=== PATIENT | female | born 1940 | race Hispanic/Latino ===

== ENCOUNTER 2018-01-02 23:30 | Emergency (ER) | payer MEDICARE, OTHER ==
--- NOTE | 2018-01-03 07:33 | CT ---
PRELIMINARY REPORT/[facility]/EMERGENCY AFTER HOURS PROCEDURE: EXAM: CT Head Without Intravenous Contrast CLINICAL HISTORY: 77 years old, female; Injury or trauma; Fall; Initial encounter; Blunt trauma (contusions or hematoma s); Patient HX: 77f presents via em[facility] for the evaluation of a fall from bed. Fall was witnessed by [facility] staff. Denies loc. C/O bump to the head. Patient HX of dementia and at baseline per [facility] and [facility]. TECHNIQUE: Axial computed tomography images of the head/brain without intravenous contrast. COMPARISON: No relevant prior studies available. FINDINGS: Brain: Mild volume loss No hemorrhage. Moderate white matter disease. No edema. Ventricles: Unremarkable. No ventriculomegaly. Bones/joints: Unremarkable. No acute fracture. Soft tissues: Mild right parietal scalp swelling Sinuses: Unremarkable as visualized. No acute sinusitis. Mastoid air cells: Unremarkable as visualized. No mastoid effusion. IMPRESSION: No intracranial hemorrhage.Please see discussion above. Thank you for allowing us to participate in the care of your patient. Dictated and Authenticated by: Mann Sanchez MD 01/03/2018 2:07 AM Central Time ([place] & [place]) FINAL REPORT HEAD CT WITHOUT CONTRAST: Date: 01/03/18 COMPARISON: 08/14/14. HISTORY: Fall, trauma. FINDINGS: I agree with the preliminary report given by Debi. The imaged paranasal sinuses and mastoid air cells are well aerated. No displaced calvarial fracture. There is atherosclerotic calcification of the cav ernous carotid arteries. There is a focal area of scalp swelling near the vertex posteriorly on the r ight. There is diffuse cerebral volume loss and periventricular/deep/subcortical white matter hypoden sity, evidence of small vessel disease. No intracranial hemorrhage, midline shift, or mass effect. IMPRESSION: Focal scalp swelling on the right near the vertex. No associated fracture or intracranial hemorrhage. POS: [facility]
--- NOTE | 2018-01-03 08:06 | CT ---
PRELIMINARY REPORT/[facility]/EMERGENCY AFTER HOURS PROCEDURE: EXAM: CT Cervical Spine Without Intravenous Contrast CLINICAL HISTORY: 77 years old, female; Injury or trauma; Fall; Initial encounter; Blunt trauma; Patient HX: 77f presen ts via ems for the evaluation of a fall from bed. Fall was witnessed by [facility] staff. Denies loc. C/O bum p to the head. Patient HX of dementia and at baseline per [facility] and [facility]. TECHNIQUE: Axial computed tomography images of the cervical spine without intravenous contrast. COMPARISON: No relevant prior studies available. FINDINGS: Vertebrae: Loss of vertebral body height, presumed degenerative. Minimal retrolisthesis of C5 on C6 No acute fracture. Discs/spinal canal/neural foramina: No acute findings. Central canal stenosis most pronounced at C4-C 5. Foraminal stenosis most pronounced at C5-C6 Soft tissues: Unremarkable. Lung apices: Mild groundglass opacity in the left upper lobe IMPRESSION: No definite acute cervical fracture Mild left upper lobe opacity which may represent pulmonary contusion Thank you for allowing us to participate in the care of your patient. Dictated and Authenticated by: Mann Sanchez MD 01/03/2018 2:07 AM Central Time ([place] & [place]) FINAL REPORT CERVICAL SPINE CT WITHOUT CONTRAST: Date: 01/03/18 COMPARISON: None. HISTORY: Dementia, fall, trauma. FINDINGS: I agree with the preliminary report given by Debi. Incompletely imaged, hazy, ground-glass/alveolar opacity noted in left lung apex, nonspecific. Athero sclerotic calcification of cavernous carotid arteries noted. C1 ring, occipital condyles, C1-2 articu lation, dens, craniocervical junction, and cervicothoracic junction are intact. There is prominent degenerative change at the atlantoaxial interspace. There is multilevel bilateral facet hypertrophy. There is disc bulge present at C4-5. There is mild retrolisthesis at C5-6 and mild anterolisthesis at C7-T1. No prevertebral soft tissue swelling, fracture, or evidence of dislocation. IMPRESSION: No acute cervical spine fracture noted. Additional findings as described above. POS: [facility]
== END 2018-01-03 03:03 ==
LOC: ERS 23:30
DX: S00.03XA Contusion of scalp, initial encounter (principal); E78.5 Hyperlipidemia, unspecified; I10 Essential (primary) hypertension; E11.39 Type 2 diabetes mellitus with other diabetic ophthalmic complication; H40.9 Unspecified glaucoma; E11.40 Type 2 diabetes mellitus with diabetic neuropathy, unspecified; G47.00 Insomnia, unspecified; G30.9 Alzheimer's disease, unspecified; F02.80 Dementia in other diseases classified elsewhere, unspecified severity, without behavioral disturbance, psychotic disturbance, mood disturbance, and anxiety; Z79.4 Long term (current) use of insulin; Z79.899 Other long term (current) drug therapy; W06.XXXA Fall from bed, initial encounter
CPT/HCPCS: 70450; 72125

== ENCOUNTER 2018-01-09 10:05 | Emergency (ER) | payer MEDICARE ==
--- NOTE | 2018-01-09 11:15 | CT ---
CT BRAIN WITHOUT CONTRAST: HISTORY: Fall. Injury. COMPARISON: CT brain from 01/03/2018. FINDINGS: No acute territorial infarct or hemorrhage. No midline shift or mass effect. Ventricular size and e xtraaxial CSF spaces are normal. Moderate atrophy. The paranasal sinuses and mastoids are clear. The calvarium is intact. Moderate microvascular ischemic changes. Moderate atrophy. IMPRESSION: No acute intracranial abnormality. POS: [facility]
== END 2018-01-09 12:45 | disposition home or self-care (01) ==
LOC: ERS 10:05
DX: S00.03XA Contusion of scalp, initial encounter (principal); E78.5 Hyperlipidemia, unspecified; I10 Essential (primary) hypertension; F41.9 Anxiety disorder, unspecified; E11.42 Type 2 diabetes mellitus with diabetic polyneuropathy; G47.00 Insomnia, unspecified; G30.9 Alzheimer's disease, unspecified; F02.80 Dementia in other diseases classified elsewhere, unspecified severity, without behavioral disturbance, psychotic disturbance, mood disturbance, and anxiety; Z79.4 Long term (current) use of insulin; Z79.899 Other long term (current) drug therapy; W05.0XXA Fall from non-moving wheelchair, initial encounter; Y92.129 Unspecified place in nursing home as the place of occurrence of the external cause
CPT/HCPCS: 70450

== ENCOUNTER 2018-06-19 19:33 | Inpatient (IN) | payer MEDICARE, OTHER, MEDICAID ==
[2018-06-19 20:18] LABS: #Eosinphils 0.3 thou/uL (0.0-0.7); #Lymphocytes 1.6 thou/uL (1.20-3.40); #Monocytes 0.3 thou/uL (0.11-0.59); #Neutrophils 3.5 thou/uL (1.40-6.50); %Basophils 0.5 % (0.0-1.0); %Eosinophils 4.9 % (0.0-10.0); %Lymphocytes 27.4 % (21.0-51.0); %Monocytes 5.2 % (0.0-10.0); %Neutrophils 62.1 % (42.0-75.0); Hemoglobin 11.1 g/dL (12.0-16.0); Mean Corpuscular HGB CONC 33.3 g/dL (32.0-36.0); Mean Corpuscular Volume 83.9 fL (78.0-98.0); Mean Platelet Volume 7.3 fL (7.4-10.4); Platelet Count 173 thou/uL (130-400); RBC Distribution Width 16.4 % (11.5-14.5); Red Blood Cell (RBC) Count 3.96 mill/uL (4.20-5.40); White Blood Cell (WBC) Count 5.7 thou/uL (4.8-10.8)
[2018-06-19 20:38] LABS: ALT (SGPT) 78 U/L (8-55); AST (SGOT) 58 U/L (5-34); Albumin 2.4 g/dL (3.4-4.8); Alkaline Phosphatase 226 U/L (40-150); Anion Gap 8 mmol/L (10-20); BUN (Urea Nitrogen) 58 mg/dL (9.8-20.1); Bilirubin, Total 0.2 mg/dL (0.2-1.2); Calc. Creatinine Clearance 0 mL/min (70-130); Calcium 8.3 mg/dL (7.8-10.44); Carbon Dioxide 27 mmol/L (23-31); Chloride 112 mmol/L (98-107); Estimated GFR-MDRD 17; Glucose 69 mg/dL (83-110); Potassium 4.2 mmol/L (3.5-5.1); Protein, Total 5.4 g/dL (6.0-8.3); Sodium 143 mmol/L (136-145)
--- NOTE | 2018-06-19 20:38 | RAD ---
RADIOGRAPH CHEST 1 VIEW: Date: 06/19/2018 Time: 8:22 p.m. HISTORY: A 77-year-old female with altered mental status and hypoglycemia. COMPARISON: None available. FINDINGS: A large defibrillation paddle overlies most of the right lung. There are bilateral pleural effusions , at least moderate sized, and possibly large. There is opacification of the bilateral lung bases, p artly due to the pleural effusions. There could be atelectasis or air space disease in the lower lob es. No cardiomegaly. No pneumothorax is identified. IMPRESSION: 1. Bilateral moderate to large pleural effusions. 2. Ongoing cardioversion. DIEGO [] POS: [facility]
[2018-06-19 20:42] LABS: CKMB 5.2 ng/mL (0-6.6); Troponin I 0.063 ng/mL (< 0.028)
[2018-06-19] MEDS ORDERED: Dextrose 50% Abboject 50 ML SYRINGE ONE (20:50)
[2018-06-19 21:37] LABS: Bilirubin Negative (Negative); Blood, Urine Negative (Negative); Clarity CLOUDY (Clear); Glucose, Urine (Dipstick) 100 mg/dL (Negative); Leukocyte Negative (Negative); Nitrite Negative (Negative); Protein, Urine (Dipstick) > or equal to 300 mg/dL (Neg-Trace); Specific Gravity, Urine 1.017 (1.002-1.036); Urobilinogen 0.2 mg/dL (0.2-1.0)
[2018-06-19 21:40] LABS: Bacteria/HPF 4+ HPF (None Seen); Hyaline Casts/LPF 0-3 HYALINE CAST LPF (0-3 Hyaline); RBC/HPF 0-3 HPF (0-3)
[2018-06-19 21:41] LABS: Yeast-AUWi Flag 27.9 (0-25.0)
[2018-06-19 21:51] LABS: Crystals/HPF 3+ AMORPH URATES HPF (Negative); Yeast-All Forms None Seen HPF (None Seen)
[2018-06-19] MEDS ORDERED: Aspirin 300 MG Suppository ONE (22:41)
[2018-06-19] MEDS ORDERED: cefTRIAXone\\ROCEPHIN 2 GM VIAL ONE (22:41)
[2018-06-20] MEDS ORDERED: Dextrose 50% Abboject 50 ML SYRINGE ONE (00:30)
[2018-06-20 00:32] LABS: Troponin I 0.079 ng/mL (< 0.028)
[2018-06-20] MEDS ORDERED: Acetaminophen 325 MG TAB PO PRN (01:18)
[2018-06-20] MEDS ORDERED: Ondansetron HCl/PF 4 MG/2 ML Vial IVP PRN (01:18)
[2018-06-20] MEDS ORDERED: Dextrose 5% in Water 1,000 ML IV PRN (02:42)
[2018-06-20 03:50] LABS: #Eosinphils 0.1 thou/uL (0.0-0.7); #Monocytes 0.4 thou/uL (0.11-0.59); %Basophils 0.2 % (0.0-1.0); %Eosinophils 2.6 % (0.0-10.0); %Lymphocytes 18.3 % (21.0-51.0); %Monocytes 6.7 % (0.0-10.0); %Neutrophils 72.2 % (42.0-75.0); Hemoglobin 10.4 g/dL (12.0-16.0); Mean Corpuscular HGB CONC 33.8 g/dL (32.0-36.0); Mean Corpuscular Hemoglobin 28.3 pg (27.0-31.0); Mean Corpuscular Volume 83.7 fL (78.0-98.0); Mean Platelet Volume 8.4 fL (7.4-10.4); Platelet Count 126 thou/uL (130-400); RBC Distribution Width 16.4 % (11.5-14.5); Red Blood Cell (RBC) Count 3.68 mill/uL (4.20-5.40); White Blood Cell (WBC) Count 5.6 thou/uL (4.8-10.8)
[2018-06-20 04:05] LABS: Anion Gap 12 mmol/L (10-20); BUN (Urea Nitrogen) 57 mg/dL (9.8-20.1); Calc. Creatinine Clearance 16 mL/min (70-130); Calcium 7.7 mg/dL (7.8-10.44); Carbon Dioxide 19 mmol/L (23-31); Chloride 117 mmol/L (98-107); Estimated GFR-MDRD 18; Glucose 92 mg/dL (83-110); Potassium 4.2 mmol/L (3.5-5.1); Sodium 144 mmol/L (136-145)
[2018-06-20] MEDS: Dextrose 50% Abboject 50 ML SYRINGE IVP PRN ×3 (05:00→11:56)
--- NOTE | 2018-06-20 06:26 | HP ---
PRIMARY CARE PHYSICIAN: A doctor at the skilled nursing. CODE STATUS: DNR/DNI as verified by power of deputy attorney general and this her daughter at bedside. TIME OF EVALUATION: 12:05 a.m. CHIEF COMPLAINT: Change in mental status. HISTORY OF PRESENT ILLNESS: This is a 77-year-old female patient with past medical history of Alzhei lachelle, diabetes, hypertension, depression, very poor mental baseline due to dementia. The patient is i n a skilled nursing, came to the hospital after having worsening of the mental status, she was found to be hypoglycemic, also hypothermic, she was found to have a positive urine, most likely the signs and symptoms are coming from sepsis. The patient has been started on antibiotics, has been placed in a w arm blanket. We will monitor her blood sugar with correction as needed. She has been started on bro ad spectrum antibiotics. We will follow cultures. REVIEW OF SYSTEMS: Unable to obtain. The patient is lethargic, only responsive to deep pain stimula tion. PAST MEDICAL HISTORY: As mentioned in the HPI. PAST SURGICAL HISTORY: Bunionectomy, tubal ligation, cataract extraction. PSYCHIATRIC HISTORY: No previous psych history. SOCIAL HISTORY: No alcohol, no drugs. No smoking history. FAMILY HISTORY: Reviewed and noncontributory for current presentation. ALLERGIES: No known drug allergies. MEDICATIONS: Hydrochlorothiazide, Lantus, Humalog, simvastatin, ____, enalapril, metoprolol, sertral ine. PHYSICAL EXAMINATION: VITAL SIGNS: At presentation, blood pressure 189/60, with a heart rate 42, respiratory rate was 14, oxygen in the range of 96. GENERAL APPEARANCE: The patient is lethargic, only arousable to deep stimulation. No acute distress . HEENT: Eyes, normal conjunctivae. Moist oral mucosa. Not icteric. NECK: No JVD. RESPIRATORY: Bilateral air entry. No rales, no wheezing. Symmetric expansion. CARDIOVASCULAR: Normal rate. Patient is bradycardic, regular rhythm. No murmurs, no gallop. Bilat eral edema. ABDOMEN: Soft, normal bowel sounds. MUSCULOSKELETAL: Baseline range of motion, unable to explore and with the patient's health. The pat ient is lethargic. SKIN: Warm and intact. No pallor, rashes or redness. The patient has a bedsore stage II in the sac ral area. Peripheral pulses are present. Capillary refill seems to be intact. NEUROLOGIC: The patient is lethargic, I am unable to fully explore. There was no evidence of any ne w weakness. Cranial nerves and sensory intact. PSYCHIATRIC: The patient is lethargic, unable to explore. Chest x-ray was reviewed. The patient has bilateral moderate to large pleural effusions. LABORATORY DATA: Labs were reviewed. The patient has white count 5.7, hemoglobin 11, MCV 83, platel et count 173. Sodium 143, potassium 4.2, chloride 112, carbon dioxide 27, anion gap 8. BUN 58 with creatinine 2.67. On previous admission the creatinine was 1.98, glucose initially was in the 50s, th en 74, has being above 100 after initial treatment. Lactic acid 1.3, AST 58, ALT 78, alkaline phosph atase 226. Troponin initial 0.063 and 0.079, BNP 370. Urine was done and was positive with white co unt 11-20. ASSESSMENT AND PLAN: The patient will be placed in the hospital for the following medical problems: 1. Acute encephalopathy, likely due to hypoglycemia, also due to underlying sepsis. We will treat t he underlying condition. Supportive care, aspiration precautions. 2. Hypoglycemia, could be related to patient getting medications and not eating appropriately; howev er, might be also secondary to underlying sepsis. 3. Sepsis. The patient presented with hypothermia, acute encephalopathy, acute kidney injury, posit lindsey UA. The patient has been started on antibiotics and will continue for now. Follow cultures and adjust symptoms. 4. Urinary tract infection, positive UA, treatment as above. 5. Bilateral pleural effusions, likely secondary to underlying congestive heart failure. We are galvan ited with fluid administration with sepsis, we will need to find the right ____ for fluids. 7. Acute on chronic kidney injury. The patient has an increase in creatinine from 1.8-2.6, patient has received some hydration initially, this might be also secondary to sepsis. The patient is on ant ibiotics, if not improving we might need to call Nephrology for assistance with this case. 8. Mildly positive troponin, initial was 0.063, and 0.079, elevation is mild, could be secondary to non-ST elevation myocardial infarction, could be secondary to sepsis, will trend, might need Cardiolo gy activity assistant with this case. 9. Elevated beta natriuretic peptide. The patient most likely has underlying congestive heart failu re, do echo in the morning. 10. Hypothermia, could be secondary to combination of sepsis plus hypoglycemia that might have been for a prolonged time, continue warm blankets. Treat underlying condition. TSH was normal. 11. Hyperlipidemia, reconcile home medications. Advance diet once the patient is able to eat.
[2018-06-20] MEDS ORDERED: Enoxaparin Sodium 30 MG/0.3 ML SYRINGE SC SCH (09:00)
--- NOTE | 2018-06-20 11:22 | PDOC.PULCN ---
<Shahana Olivares - Last Filed: 06/20/18 11:41> Pulmonology Consult: HPI - Date of Consult Date: 06/20/18 Time: 11:20 - Consult Details Reason for Consult: Admission in the IMCU Requesting Physician: Dr. Caballero - History of Present Illness HPI: VALERIE TOMLINSON is a 77 year-old F PMHx Advanced Alzheimers, DM, HTN, HLD, Depression who presented from [facility] where she resides due to altered mental status. She was found to be hypoglycemic by the [place]. Her daughter reports that she had not been eating as much Tuesday when she saw her. She was also found in the ED to be hypothermic with temps as low as 92. Her daughter reports that her baseline mental status is that she can sit in a wheelchair and move herself around with her feet, but she no longer walks. She can also feed herself. Unable to obtain history from the patient due to mental status changes and advanced dementia. Pulmonology Consult: ROS - Review of Systems ROS unobtainable: due to mental status Pulmonology Consult: H Source: family Past Medical History: PMHx: DM2, Alzheimer's Dementia, Glaucoma, HTN, HLD, Insomnia, Depression PSHx: Bilateral tubal ligation, bunionectomy, cataracts - Family History Family history: reviewed and not pertinent - Social History Smoking Status: Never smoker Alcohol Use: none Drug Use History: none Living Situation: longterm resident Pulmonology Consult: Meds - Medications MAR Reviewed: Yes Medications: Current Medications Acetaminophen (Tylenol) 650 mg PO Q4H PRN PRN Reason: Headache/Fever or Pain Dextrose/Water (Dextrose 50%) 25 gm IVP PRN PRN PRN Reason: HYPOGLYCEMIA PROTOCOL Last Admin: 06/20/18 08:05 Dose: 25 gm Enoxaparin Sodium (Lovenox) 30 mg SC 0900 SRINIVAS Last Admin: 06/20/18 08:38 Dose: 30 mg Glucagon (Glucagon) 1 mg IM PRN PRN PRN Reason: HYPOGLYCEMIA PROTOCOL Ceftriaxone Sodium 1 gm/ (Sodium Chloride) 100 mls @ 200 mls/hr IVPB 2300 SRINIVAS Dextrose/Water (D5w) 1,000 mls @ 0 mls/hr IV INF PRN PRN Reason: HYPOGLYCEMIA PROTOCOL Dextrose/Sodium Chloride (D5 1/2 Ns) 500 mls @ 40 mls/hr IV .[id number] SRINIVAS Ondansetron HCl (Zofran) 4 mg IVP Q6H PRN PRN Reason: Nausea/Vomiting - Allergies Allergies/Adverse Reactions: Allergies Allergy/AdvReac Type Severity Reaction Status Date / Time No Known Allergies Allergy Verified 06/20/18 00:01 Pulmonology Consult: PE - Physical Exam Constitutional: NAD HEENT: oral pharynx no lesions Deviation from normal: dry mucous membranes Neck: no nodes, supple Cardiovascular: RRR, no significant murmur Respiratory: clear to auscultation bilaterally. negative: accessory muscle use , rales, respiratory distress, rhonchi, wheezes Gastrointestinal: soft, non-tender, no distention, positive bowel sounds Musculoskeletal: edema present (1+ pedal edema bilaterally and dependent hip edema) Neurological: non-focal, moves all 4 limbs Deviation from normal: A&Ox0 Skin: cap refill <2 seconds Deviation from normal: reported stage 2 sacral decubitus ulcer Pulmonology Consult: Results - Labs Result Diagrams: 06/20/18 03:16 06/20/18 03:16 - Radiology Interpretation Chest x-ray Status: image reviewed by me, report reviewed by me Additional comments: bilateral pleural effusions Pulmonology Consult: A/P - Problem (1) Sepsis Current Visit: Yes Code(s): A41.9 - SEPSIS, UNSPECIFIED ORGANISM Status: Acute Qualifiers: Sepsis type: sepsis due to unspecified organism Qualified Code(s): A41.9 - Sepsis, unspecified organism (2) UTI (urinary tract infection) Current Visit: Yes Status: Acute Qualifiers: Urinary tract infection type: acute cystitis Hematuria presence: without hematuria Qualified Code(s): N30.00 - Acute cystitis without hematuria (3) Hypoglycemia Current Visit: Yes Code(s): E16.2 - HYPOGLYCEMIA, UNSPECIFIED Status: Acute (4) Hypothermia Current Visit: Yes Code(s): T68.XXXA - HYPOTHERMIA, INITIAL ENCOUNTER Status : Acute Qualifiers: Encounter type: initial encounter Qualified Code(s): T68.XXXA - Hypothermia , initial encounter (5) MALISSA (acute kidney injury) Current Visit: Yes Code(s): N17.9 - ACUTE KIDNEY FAILURE, UNSPECIFIED Status : Acute (6) Elevated brain natriuretic peptide (BNP) level Current Visit: Yes Code(s): R79.89 - OTHER SPECIFIED ABNORMAL FINDINGS OF BLOOD CHEMISTRY Status: Acute (7) Elevated troponin Current Visit: Yes Code(s): R74.8 - ABNORMAL LEVELS OF OTHER SERUM ENZYMES Status: Acute - Time Time: 50% of the time was spent in coordination of care (as documented) at patient's floor/unit and/or counseling patient. Time with Patient: greater than 50 minutes - Plan Plan: -Continue Rocephin for abx coverage for UTI until urine culture sensitivities result. -D5 1/2NS @ 40 mL/hr to help pt maintain glucose until sugars improve, can move out of the IMCU once no longer requiring q2h accuchecks -Repeat troponin as they have been slowly uptrending -Echo -Bear hugger to maintain temperature -Renally dose medications Code status: DNR per daughter <Ramiro Cardona - Last Filed: 06/26/18 08:33> Pulmonology Consult: HPI - History of Present Illness HPI: TOMLINSON,MARY L is a 77 year-old F Pulmonology Consult: Meds - Medications Medications: Current Medications Acetaminophen (Tylenol) 650 mg PO Q4H PRN PRN Reason: Headache/Fever or Pain Atorvastatin Calcium (Lipitor) 20 mg PO HS [facility] Last Admin: 06/25/18 20:34 Dose: 20 mg Dextrose/Water (Dextrose 50%) 25 gm SLOW IVP PRN PRN PRN Reason: Hypoglycemia Donepezil HCl (Aricept) 10 mg PO HS [facility] Last Admin: 06/25/18 20:34 Dose: 10 mg Glucagon (Glucagon) 1 mg IM PRN PRN PRN Reason: Hypoglycemia Heparin Sodium (Porcine) (Heparin) 5,000 units SC TID [facility] Last Admin: 06/25/18 20:35 Dose: Not Given Hydralazine HCl (Apresoline) 25 mg PO TID [facility] Last Admin: 06/25/18 20:35 Dose: 25 mg Ceftriaxone Sodium 1 gm/ (Sodium Chloride) 100 mls @ 200 mls/hr IVPB 2300 [facility] Last Admin: 06/25/18 22:18 Dose: 100 mls Dextrose/Water (D5w) 1,000 mls @ 0 mls/hr IV .Q0M PRN PRN Reason: Hypoglycemia Sodium Bicarbonate 75 meq/ (Dextrose/Water) 1,075 mls @ 75 mls/hr IV .[id number] [facility] Last Admin: 06/26/18 05:18 Dose: 1,075 mls Insulin Human Lispro (Humalog) 0 units SC .MILD SLIDING SCALE PRN PRN Reason: Mild Correctional Scale Last Admin: 06/25/18 18:06 Dose: 6 unit Insulin Human Lispro (Humalog) 0 units SC .BEDTIME SLIDING SC PRN PRN Reason: Bedtime Correctional Scale Last Admin: 06/25/18 22:18 Dose: 4 unit Multivitamins (Theragran) 1 tab PO DAILY [facility] Last Admin: 06/25/18 08:45 Dose: 1 tab Ondansetron HCl (Zofran) 4 mg IVP Q6H PRN PRN Reason: Nausea/Vomiting Sertraline HCl (Zoloft) 25 mg PO DAILY [facility] Last Admin: 06/25/18 08:46 Dose: 25 mg Sodium Chloride (Flush - Normal Saline) 10 ml IVF Q12HR [facility] Last Admin: 06/25/18 20:36 Dose: 10 ml Sodium Chloride (Flush - Normal Saline) 10 ml IVF PRN PRN PRN Reason: Saline Flush Pulmonology Consult: Results - Labs Result Diagrams: 06/25/18 04:26 06/25/18 04:26 Pulmonology Consult: A/P - Time Time: 50% of the time was spent in coordination of care (as documented) at patient's floor/unit and/or counseling patient. Attending Addendum - Attending Addendum Date/Time: I personally evaluated the patient and discussed the management with the resident. I agree with the History, Examination, Assessment and Plan documented above with any addition or exceptions noted below. 70 minutes have been devoted to this patient in various activities. I personally reviewed all imaging studies and laboratory data noted within this document. For fifty percent of this time, I was interacting with the patient at the bedside or coordinating care with the care team. For the remainder of the time I was immediately available to the patient in the hospital unit.
[2018-06-20] MEDS ORDERED: D5 1/2 NS 500 ML IV SCH (11:30)
[2018-06-20] MEDS: Dextrose 5 %-0.45 % NaCl 1,000 ML IV SCH (11:45)
[2018-06-20 13:12] LABS: CKMB 4.2 ng/mL (0-6.6); Troponin I 0.126 ng/mL (< 0.028)
[2018-06-20] MEDS ORDERED: Metoprolol Tartrate 50 MG TAB PO SCH (14:45)
[2018-06-20] MEDS ORDERED: Hydrochlorothiazide 25 MG TAB PO SCH (14:45)
[2018-06-20 14:51] LABS: Hemoglobin A1c 6.3 % (4.0-6.0)
[2018-06-20 18:35] LABS: CKMB 4.6 ng/mL (0-6.6); Troponin I 0.133 ng/mL (< 0.028)
[2018-06-20] MEDS: Atorvastatin Calcium 20 MG TAB PO SCH (19:50)
[2018-06-20] MEDS: Donepezil HCl 10 MG TAB PO SCH (19:50)
[2018-06-20] MEDS: Metoprolol Tartrate 50 MG TAB PO SCH (19:51)
[2018-06-20] MEDS: cefTRIAXone\\ROCEPHIN 1 GM in Sodium Chloride 0.9% 100 ML IVPB SCH (23:18)
[2018-06-21] MEDS: Dextrose 50% Abboject 50 ML SYRINGE IVP PRN (01:48)
[2018-06-21] MEDS ORDERED: hydrALAZINE 10 MG TAB PO SCH ×2 (09:00→17:30)
[2018-06-21] MEDS: Metoprolol Tartrate 50 MG TAB PO SCH (09:10)
[2018-06-21] MEDS: Hydrochlorothiazide 25 MG TAB PO SCH (09:10)
[2018-06-21] MEDS: Heparin 5,000 UNITS/ML VIAL SC SCH ×3 (09:10→21:25)
[2018-06-21] MEDS: Multivit, Therapeutic 1 TAB PO SCH (09:11)
[2018-06-21 09:43] LABS: Anion Gap 10 mmol/L (10-20); BUN (Urea Nitrogen) 46 mg/dL (9.8-20.1); Calc. Creatinine Clearance 14 mL/min (70-130); Calcium 7.9 mg/dL (7.8-10.44); Carbon Dioxide 20 mmol/L (23-31); Chloride 116 mmol/L (98-107); Estimated GFR-MDRD 17; Glucose 81 mg/dL (83-110); Potassium 3.8 mmol/L (3.5-5.1); Sodium 142 mmol/L (136-145)
--- NOTE | 2018-06-21 09:47 | CON ---
DATE OF CONSULTATION: 06/19/2018 REASON FOR CONSULTATION: Elevated creatinine. HISTORY OF PRESENT ILLNESS: This is a very pleasant 77-year-old female, who is pretty much nonverbal and was admitted to the ICU for change in altered mental status. The patient's creatinine was 2.6 o n admission and has decreased to 2.5. Her last creatinine in 2013 was 1.9. The patient denies heada guerita, numbness, tingling or weakness. PAST MEDICAL HISTORY: Significant for Alzheimer's, hypertension, diabetes mellitus, CKD stage 4, ane alexis, bunionectomy, and tubal ligation. SOCIAL AND ECONOMIC HISTORY: No alcohol or drug use. FAMILY HISTORY: Negative for ESRD. ALLERGIES: Reviewed. HOME MEDICATIONS: List reviewed. REVIEW OF SYSTEMS: Unobtainable. PHYSICAL EXAMINATION: GENERAL: Patient is resting. VITAL SIGNS: Afebrile, pulse 75, breathing 16, blood pressure was 156/45. GENERAL: Weakness- HEAD: Headache- NECK: No swelling or lumps. NOSE: No epistaxis or discharge. EYES: No diplopia or pain. RESPIRATORY: Dyspnea- CARDIOVASCULAR: Chest pain- GASTROINTESTINAL: Nausea- /OCCUPATIONAL SAFETY AND HEALTH MANAGER: Hematuria- MUSCULOSKELETAL: No joint pain. NEUROPSYCHIATIC SYSTEMS: No suicidal ideation. No ideation. SKIN: Denies any rash or ulcer. CONSTITUTIONAL: No fever or chills. LABORATORY DATA: Potassium 9.3. ASSESSMENT AND RECOMMENDATIONS: 1. Acute kidney injury, chronic kidney disease, most likely decreased effective arterial blood volum e. Continue hydration. 2. Hypertension, stable. 3. Anemia, stable. We will order . No indication for dialysis at this time.
--- NOTE | 2018-06-21 13:03 | PRG ---
DATE OF SERVICE: 06/21/2018 SERVICE: Pulmonary Medicine. INTERVAL HISTORY: The patient is doing fine from a respiratory standpoint. Blood pressure is a rm le elevated. She is breathing comfortably. There are no significant overnight events. Otherwise, t here has been no interval change to her condition. She cannot provide any additional elements of the history. She follows some simple commands and can answer in 1- or 2-word sentences. Outside of [facility], she is poorly interactive. PHYSICAL EXAMINATION: VITAL SIGNS: Afebrile. Pulse 45, blood pressure 149/57, respirations 16, saturation 99% on room air . GENERAL: The patient is awake and alert, in no apparent distress. LUNGS: Decent air entry. There is no prolonged expiratory phase or wheezing present. HEART: Bradycardic. Regular. ABDOMEN: Soft, nontender, nondistended. Bowel sounds are positive. MUSCULOSKELETAL: No cyanosis or clubbing. There is no pitting in the bilateral lower extremities. NEUROLOGIC: Grossly nonfocal. LABORATORY DATA: WBC 5.6, hemoglobin 10.4. Creatinine 2.77, BUN 46, bicarbonate 20, chloride 116 an d slowly down trending. Blood cultures x2 and urine culture unremarkable. IMAGING: Echocardiogram demonstrates an ejection fraction that is normal. There is diastolic dysfun ction. Moderate mitral regurgitation is also present. ASSESSMENT: 1. Metabolic encephalopathy. 2. Severe sepsis. 3. Urinary tract infection. 4. Dementia, advanced. PLAN: The patient is stable for transition out of the IMCU to the telemetry unit. Cardiology consul tation will be placed for the bradyarrhythmia, which is persisting despite fixing some of the electro lyte abnormalities.
[2018-06-21] MEDS: Dextrose 5 %-0.45 % NaCl 1,000 ML IV SCH (16:37)
--- NOTE | 2018-06-21 16:54 | PDOC.PN ---
- Subjective Encounter Start Date: 06/21/18 Encounter Start Time: 16:45 Subjective: f/u for metabolic encephalopathy and suspected UTI and hypoglycemia. -: Glucose trending up as well BP. Remains lethargic but with advanced -: dementia. - Objective Resuscitation Status: Resuscitation Status DNR:Do Not Resuscitate MAR Reviewed: Yes Vital Signs & Weight: Vital Signs (12 hours) Temp Pulse Resp BP Pulse Ox 06/21/18 16:00 96.7 F L 43 L 18 187/62 H 98 06/21/18 11:00 96.6 F L 45 L 16 149/57 H 99 06/21/18 09:10 40 L 06/21/18 07:52 96.5 F L 40 L 16 06/21/18 07:43 96.5 F L 40 L 16 182/59 H 97 Weight Admit Weight 123 lb 7.342 oz Weight 121 lb 5 oz Most Recent Monitor Data Heart Rate from ECG 63 NIBP 156/45 NIBP BP-Mean 70 Respiration from ECG 26 SpO2 96 I&O: 06/20/18 06/21/18 06/22/18 06:59 06:59 06:59 Intake Total 960 Output Total 380 860 Balance -380 100 Result Diagrams: 06/20/18 03:16 06/21/18 09:15 Additional Labs: Accuchecks 06/21/18 06/21/18 06/21/18 16:22 11:59 10:16 POC Glucose 323 H 152 H 101 06/21/18 06/21/18 06/21/18 08:13 05:54 02:33 POC Glucose 264 H 105 182 H 06/21/18 06/20/18 06/20/18 01:45 22:01 19:59 POC Glucose 58 L* 85 106 06/20/18 18:31 POC Glucose 117 H Microbiology 06/19/18 21:20 Urine Straight Catheter Urine Culture - Preliminary 06/19/18 20:17 Venous blood - Left Hand Blood Culture - Preliminary NO GROWTH AT 48 HOURS 06/19/18 20:10 Venous blood - Left Arm Blood Culture - Preliminary NO GROWTH AT 48 HOURS Laboratory Tests 06/19/18 06/19/18 06/20/18 20:10 20:10 03:16 Creatinine 2.67 H 2.51 H Hemoglobin A1c Lactic Acid 1.3 06/20/18 06/21/18 03:16 09:15 Creatinine 2.77 H Hemoglobin A1c 6.3 H Lactic Acid Radiology Reviewed by me: Yes (2D echo - EF 55%, diast dysfxn, mod MR) EKG Reviewed by me: Yes (Tele - Sinus bradycardia) Phys Exam - Physical Examination lethargic, opens eyes briefly to name HEENT: PERRLA, sclera anicteric, oral pharynx no lesions Neck: no nodes, no JVD, supple, full ROM Respiratory: no wheezing, no rales, no rhonchi, clear to auscultation bilateral S1, S2 Cardiovascular: RRR, no significant murmur, no rub, gallop Gastrointestinal: soft, non-tender, no distention, positive bowel sounds Musculoskeletal: no edema, pulses present opens eyes to name, states one word Skin: no rash, normal turgor, cap refill <2 seconds Deviation from normal: Banegas with clear urine Dx/Plan (1) Metabolic encephalopathy Code(s): G93.41 - METABOLIC ENCEPHALOPATHY Status: Acute Comment: Suspected with multifactorial process including UTI, continue supportive mgmt, component of underlying dementia (2) MALISSA (acute kidney injury) Code(s): N17.9 - ACUTE KIDNEY FAILURE, UNSPECIFIED Status: Acute Comment: No improvement, ? new baseline, avoid nephrotoxic meds and limit contrast exposure (3) Hypoglycemia Code(s): E16.2 - HYPOGLYCEMIA, UNSPECIFIED Status: Acute Comment: Resolving , resume low-dose Lantus and monitor trend (4) UTI (urinary tract infection) Status: Acute Qualifiers: Urinary tract infection type: acute cystitis Hematuria presence: without hematuria Qualified Code(s): N30.00 - Acute cystitis without hematuria Comment: Continue Rocephin pending final Ucx results (5) Advanced dementia Code(s): F03.90 - UNSPECIFIED DEMENTIA WITHOUT BEHAVIORAL DISTURBANCE Status: Chronic Comment: Consider Palliative care option, continue Aricept 10mg HS - Plan continue antibiotics, PT/OT, social insurance adviser, DVT proph w/SCDs Continue supportive mgmt -: Palliative care options -: Continue Rocephin 1gm IV daily -: Start Lantus 3u sc daily -: Increase Hydralazine 10mg TID * AM lab: BMP
--- NOTE | 2018-06-21 18:38 | PRG ---
DATE OF SERVICE: 06/21/2018 SUBJECTIVE: A 77-year-old female being seen for acute kidney injury. The patient remains nonverbal. PHYSICAL EXAMINATION: GENERAL: Patient is awake. VITAL SIGNS: Afebrile, pulse 45, breathing at 16, blood pressure 149/57. HEAD/NECK: Normocephalic. Atraumatic. EYES: EOMI. No deformity. EARS: Clear. No ulcers. NOSE: Intact. No lesions. MOUTH: Clear. No discharge. THROAT: Clear. No exudate. LUNGS: Clear. No crackles. CARDIAC: S1, S2. No rub. ABDOMEN: Benign. BS+. GENITALIA/RECTUM: Banegas absent. BACK/EXTREMITIES: Edema 0+ Ulcer- NEUROLOGICAL: The patient is responsive. SKIN: Rash- Bruise- LYMPHATICS: Edema- Ulcer- LABORATORY DATA: Show creatinine 2.7, potassium 3.8, bicarbonate 38. ASSESSMENT AND PLAN: 1. Acute kidney injury with chronic kidney disease due to probable UTI and chronic ischemic nephropa thy. I will order renal imaging. 2. Hypertension, stable. 3. Anemia, stable. 4. Medications based on GFR are appropriate. No urgent indication for dialysis.
--- NOTE | 2018-06-21 19:54 | ULT ---
RENAL ULTRASOUND 06/21/18 COMPARISON: None. HISTORY: Acute kidney injury. TECHNIQUE: Multiplanar huber scale and color doppler images were obtained in a renal ultrasound. FINDINGS: The kidneys are normal in echogenicity without hydronephrosis or calculi and measure 7.2 and 8.9 cm i n length on the right and left, respectively. The urinary bladder is decompressed by Banegas catheter. IMPRESSION: Unremarkable renal ultrasound. POS: C
[2018-06-21] MEDS: Donepezil HCl 10 MG TAB PO SCH (21:23)
[2018-06-21] MEDS: hydrALAZINE 10 MG TAB PO SCH (21:24)
[2018-06-21] MEDS: Atorvastatin Calcium 20 MG TAB PO SCH (21:24)
[2018-06-22 03:35] LABS: #Eosinphils 0.3 thou/uL (0.0-0.7); #Lymphocytes 1.3 thou/uL (1.20-3.40); #Monocytes 0.4 thou/uL (0.11-0.59); %Basophils 0.4 % (0.0-1.0); %Eosinophils 4.6 % (0.0-10.0); %Lymphocytes 18.8 % (21.0-51.0); %Monocytes 5.6 % (0.0-10.0); %Neutrophils 70.6 % (42.0-75.0); Hemoglobin 10.2 g/dL (12.0-16.0); Mean Corpuscular Hemoglobin 28.1 pg (27.0-31.0); Mean Corpuscular Volume 85.3 fL (78.0-98.0); Mean Platelet Volume 9.1 fL (7.4-10.4); Platelet Count 162 thou/uL (130-400); RBC Distribution Width 16.7 % (11.5-14.5); Red Blood Cell (RBC) Count 3.64 mill/uL (4.20-5.40); White Blood Cell (WBC) Count 7.1 thou/uL (4.8-10.8)
[2018-06-22 03:41] LABS: Anion Gap 11 mmol/L (10-20); BUN (Urea Nitrogen) 52 mg/dL (9.8-20.1); Calc. Creatinine Clearance 14 mL/min (70-130); Calcium 8.2 mg/dL (7.8-10.44); Carbon Dioxide 18 mmol/L (23-31); Chloride 117 mmol/L (98-107); Estimated GFR-MDRD 16; Glucose 189 mg/dL (83-110); Potassium 4.1 mmol/L (3.5-5.1); Sodium 142 mmol/L (136-145)
--- NOTE | 2018-06-22 08:11 | PDOC.PN ---
- Subjective Encounter Start Date: 06/22/18 Encounter Start Time: 08:00 Subjective: f/u for hypoglycemia and now hypothermia overnight. Pt transferred to -: tele with low temp and placed on daina hugger. Temp stabilized and daughter -: notes pt the most alert and interactive since admit. - Objective Resuscitation Status: Resuscitation Status DNR:Do Not Resuscitate MAR Reviewed: Yes Vital Signs & Weight: Vital Signs (12 hours) Temp Pulse Resp BP BP Pulse Ox 06/22/18 01:31 92.0 F L 06/22/18 00:58 94.4 F L 46 L 16 153/54 H 99 06/21/18 21:24 44 L 191/70 H 06/21/18 21:08 45 L 16 191/70 H 99 Weight Admit Weight 123 lb 7.342 oz Weight 121 lb 5 oz Most Recent Monitor Data Heart Rate from ECG 63 NIBP 156/45 NIBP BP-Mean 70 Respiration from ECG 26 SpO2 96 I&O: 06/21/18 06/22/18 06/23/18 06:59 06:59 06:59 Intake Total 960 1150 Output Total 860 350 Balance 100 800 Result Diagrams: 06/22/18 03:03 06/22/18 03:03 Additional Labs: Accuchecks 06/22/18 06/22/18 06/21/18 04:00 00:39 21:05 POC Glucose 168 H 199 H 317 H 06/21/18 06/21/18 06/21/18 16:22 11:59 10:16 POC Glucose 323 H 152 H 101 06/21/18 08:13 POC Glucose 264 H Microbiology 06/19/18 21:20 Urine Straight Catheter Urine Culture - Preliminary 06/19/18 20:17 Venous blood - Left Hand Blood Culture - Preliminary NO GROWTH AT 48 HOURS 06/19/18 20:10 Venous blood - Left Arm Blood Culture - Preliminary NO GROWTH AT 48 HOURS Laboratory Tests 06/19/18 06/19/18 06/20/18 20:10 20:10 03:16 Creatinine 2.67 H 2.51 H Hemoglobin A1c Lactic Acid 1.3 06/20/18 06/21/18 03:16 09:15 Creatinine 2.77 H Hemoglobin A1c 6.3 H Lactic Acid EKG Reviewed by me: Yes (Tele - Sinus bradycardia 40-50's) Phys Exam - Physical Examination Constitutional: NAD alert, responds in 1-2 words HEENT: PERRLA, sclera anicteric, oral pharynx no lesions Neck: no nodes, no JVD, supple, full ROM diminished in bases bilat Respiratory: no wheezing, no rales, no rhonchi bradycardic S1, S2 Cardiovascular: RRR, no rub, gallop Gastrointestinal: soft, non-tender, no distention, positive bowel sounds Musculoskeletal: no edema, pulses present Neurological: normal sensation, moves all 4 limbs A x O x 1 Skin: normal turgor, cap refill <2 seconds Deviation from normal: Banegas with sediment in catheter Dx/Plan (1) Metabolic encephalopathy Code(s): G93.41 - METABOLIC ENCEPHALOPATHY Status: Acute Comment: Suspected with multifactorial process including UTI, continue supportive mgmt, component of underlying dementia, improved per family report (2) MALISSA (acute kidney injury) Code(s): N17.9 - ACUTE KIDNEY FAILURE, UNSPECIFIED Status: Acute Comment: No improvement, ? new baseline, avoid nephrotoxic meds and limit contrast exposure (3) Hypoglycemia Code(s): E16.2 - HYPOGLYCEMIA, UNSPECIFIED Status: Acute Comment: Resolving , resume low-dose Lantus and monitor trend (4) UTI (urinary tract infection) Status: Acute Qualifiers: Urinary tract infection type: acute cystitis Hematuria presence: without hematuria Qualified Code(s): N30.00 - Acute cystitis without hematuria Comment: Continue Rocephin pending final Ucx results (5) Advanced dementia Code(s): F03.90 - UNSPECIFIED DEMENTIA WITHOUT BEHAVIORAL DISTURBANCE Status: Chronic Comment: Consider Palliative care option, continue Aricept 10mg HS (6) Hypothermia Code(s): T68.XXXA - HYPOTHERMIA, INITIAL ENCOUNTER Status: Acute Qualifiers: Encounter type: initial encounter Qualified Code(s): T68.XXXA - Hypothermia , initial encounter Comment: Improved with Daina hugger, no current sign of new infectious process, repeat blood cx, continue Rocephin for suspected UTI - Plan plan discussed w/ family, continue antibiotics, PT/OT, manager social responsibility, speech therapy, DVT proph w/SCDs Continue supportive mgmt -: Hold all AV naun blocking agents and B-blockers -: Speech evaluation for dysphagia screening -: Continue Rocephin -: AM lab: BMP, CBC * Code Status: DNR
[2018-06-22] MEDS ORDERED: Dextrose 50% Abboject 50 ML SYRINGE SLOW IVP PRN (08:18)
[2018-06-22] MEDS ORDERED: Dextrose 5% in Water 1,000 ML IV PRN (08:18)
[2018-06-22] MEDS: Heparin 5,000 UNITS/ML VIAL SC SCH ×3 (10:00→21:00)
[2018-06-22] MEDS: Multivit, Therapeutic 1 TAB PO SCH (10:00)
[2018-06-22] MEDS: Hydrochlorothiazide 25 MG TAB PO SCH (10:00)
[2018-06-22] MEDS: hydrALAZINE 10 MG TAB PO SCH ×3 (10:00→21:00)
[2018-06-22] MEDS: Sodium Bicarbonate 75 MEQ in Dextrose 5% in Water 1,000 ML IV SCH ×2 (10:20→22:27)
--- NOTE | 2018-06-22 10:35 | PRG ---
DATE OF SERVICE: 06/22/2018 SUBJECTIVE: This 77-year-old female being seen for acute kidney injury. The patient does not verbal ize any complaints. PHYSICAL EXAMINATION: GENERAL: Patient is resting. VITAL SIGNS: Temperature 98.2, pulse 46, breathing 16, blood pressure 153/54. HEAD/NECK: Normocephalic. Atraumatic. EYES: EOMI. No deformity. EARS: Clear. No ulcers. NOSE: Intact. No lesions. MOUTH: Clear. No discharge. THROAT: Clear. No exudate. LUNGS: Clear. No crackles. CARDIAC: S1, S2. No rub. ABDOMEN: Benign. BS+. GENITALIA/RECTUM: Banegas absent. BACK/EXTREMITIES: Edema 0+ Ulcer- NEUROLOGICAL: Alert and motor intact. SKIN: Rash- Bruise- LYMPHATICS: Edema- Ulcer- LABORATORY DATA: Show hemoglobin 10.2, creatinine 2.9. ASSESSMENT AND RECOMMENDATIONS: 1. Acute kidney injury most likely because of acute tubular necrosis, multifactorial. No indication for dialysis. 2. Metabolic acidosis. 3. Hypertension, stable. 4. Hyperglycemia. No urgent indication for dialysis. Overall, prognosis remains extremely poor.
--- NOTE | 2018-06-22 11:17 | CON ---
DATE OF CONSULTATION: 06/22/2018 REASON FOR CONSULTATION: Sinus bradycardia in the setting of hypothermia and sepsis. HISTORY OF PRESENT ILLNESS: Ms. Long is a 77-year-old woman. The patient was brought to the [facility] on 06/20/2018. At that time, she was brought from the residential. She has a history of Alzh eimer's, diabetes, hypertension, depression. She was also on metoprolol in the residential. The alexandra estrada is unable to give any history. The patient was given antibiotics, given a warming blanket and the bradycardia has resolved. PAST HISTORY: As mentioned above in the history of present illness. MEDICATIONS: Hydrochlorothiazide, insulin, enalapril, metoprolol. SURGICAL HISTORY: History of tubal ligation and cataract extraction. PHYSICAL EXAMINATION: GENERAL: This is an elderly woman. She is confused and disoriented. She is no longer bradycardic. VITAL SIGNS: Her blood pressure most recently recorded 153/54, pulse earlier was 46, but now it is i n the 70s, it is sinus. Her temperature was down to 92 degrees, but the nurse tells me now it is wit hin normal limits, has not yet been recorded in the computer. HEENT: Eyes; sclerae nonicteric. Mouth mucous membranes moist. NECK: Supple, no lymphadenopathy. LUNGS: Clear, no wheezing, rales or rhonchi. CARDIAC: Normal S1, normal S2, no murmur, rub or gallop. ABDOMEN: Soft, nontender, no hepatosplenomegaly. EXTREMITIES: Warm and dry. NECK: The patient as mentioned is confused and disoriented. PERTINENT LABORATORY AND X-RAY FINDINGS: Hemoglobin is 10.2. BNP is 370. Creatinine is 2.91. Tiana mated GFR is 14, potassium is 4.1. EKG did show sinus bradycardia, now sinus rhythm. ASSESSMENT: 1. Sinus bradycardia related to beta blockers and hypothermia, resolved. 2. Probably diastolic heart failure with a BNP of 370, although some of the increased BNP is probabl y related to renal failure. 3. Stage 4 renal failure. 4. Ejection fraction is 50-55%, normal left ventricular function. PLAN: 1. She has been taken off beta blockers. 2. Sepsis and hypothermia have been treated. We will sign off. Please call if needed.
[2018-06-22] MEDS: Atorvastatin Calcium 20 MG TAB PO SCH (21:00)
[2018-06-22] MEDS: Donepezil HCl 10 MG TAB PO SCH (21:02)
[2018-06-22] MEDS: cefTRIAXone\\ROCEPHIN 1 GM in Sodium Chloride 0.9% 100 ML IVPB SCH ×2 (22:25)
[2018-06-23 05:13] LABS: Anion Gap 11 mmol/L (10-20); BUN (Urea Nitrogen) 46 mg/dL (9.8-20.1); Calc. Creatinine Clearance 12 mL/min (70-130); Calcium 7.7 mg/dL (7.8-10.44); Carbon Dioxide 21 mmol/L (23-31); Chloride 111 mmol/L (98-107); Estimated GFR-MDRD 14; Glucose 173 mg/dL (83-110); Potassium 3.5 mmol/L (3.5-5.1); Sodium 139 mmol/L (136-145)
[2018-06-23 05:14] LABS: Eosinophils 1 % (0-10); Hemoglobin 9.1 g/dL (12.0-16.0); Hypochromia SLIGHT = 6-15 cells (100X) (0-5/hpf); Lymphocytes 26 % (21-51); MDiff Complete? YES; Mean Corpuscular HGB CONC 33.6 g/dL (32.0-36.0); Mean Corpuscular Hemoglobin 28.4 pg (27.0-31.0); Mean Corpuscular Volume 84.5 fL (78.0-98.0); Mean Platelet Volume 10.2 fL (7.4-10.4); Monocytes 3 % (0-10); Neutrophil 70 % (42-75); PLT Morphology Comment Appears Decreased; Platelet Count 104 thou/uL (130-400); RBC Distribution Width 16.7 % (11.5-14.5); White Blood Cell (WBC) Count 6.6 thou/uL (4.8-10.8)
--- NOTE | 2018-06-23 09:04 | PRG ---
DATE OF SERVICE: 06/23/2018 SUBJECTIVE: This is a 77-year-old female being seen for acute kidney injury, progressive rise in creatinine. The patient is nonverbal. PHYSICAL EXAMINATION: GENERAL: On examination the patient is resting. VITAL SIGNS: Afebrile, pulse 70, breathing 16, blood pressure 176/74. OBJECTIVE: See above. Awake, alert, in no acute distress. GENERAL APPEARANCE AND MENTAL STATUS: Fair. HEAD/NECK: Normocephalic. Atraumatic. EYES: EOMI. No deformity. EARS: Clear. No ulcers. NOSE: Intact. No lesions. MOUTH: Clear. No discharge. THROAT: Clear. No exudate. LUNGS: Clear. No crackles. CARDIAC: S1, S2. No rub. ABDOMEN: Benign. BS+. GENITALIA/RECTUM: Banegas absent. BACK/EXTREMITIES: Edema 0+ Ulcer- NEUROLOGICAL: The patient is not responding to questioning. SKIN: Rash- Bruise- LYMPHATICS: Edema- Ulcer- LABORATORY: Hemoglobin 9.1, creatinine 3.19. ASSESSMENT AND RECOMMENDATIONS: 1. Chronic kidney disease stage 5 with progressive DM and ATN stop HCTZ 2. Tobacco abuse. 3. Hypertension, stable. 4. Anemia, stable. No urgent indication for dialysis. If the renal function does not improve, consider renal replacement. MTDD
[2018-06-23] MEDS: Hydrochlorothiazide 25 MG TAB PO SCH (09:52)
[2018-06-23] MEDS: Heparin 5,000 UNITS/ML VIAL SC SCH (09:52)
[2018-06-23] MEDS: hydrALAZINE 10 MG TAB PO SCH ×3 (09:52→21:52)
[2018-06-23] MEDS: Multivit, Therapeutic 1 TAB PO SCH (09:53)
--- NOTE | 2018-06-23 11:24 | PDOC.PN ---
- Subjective Encounter Start Date: 06/23/18 Encounter Start Time: 11:15 Subjective: f/u for AMS, hypothermia and UTI on Rocephin. Still requiring Roldan -: hugger overnight. - Objective Resuscitation Status: Resuscitation Status DNR:Do Not Resuscitate MAR Reviewed: Yes Vital Signs & Weight: Vital Signs (12 hours) Temp Pulse Resp BP BP Pulse Ox 06/23/18 09:52 57 L 176/74 H 06/23/18 08:15 96.2 F L 57 L 16 95 06/23/18 08:14 96.2 F L 57 L 16 176/74 H 95 06/23/18 04:11 94.1 F L 51 L 16 175/79 H Weight Admit Weight 123 lb 7.342 oz Weight 121 lb 5 oz Most Recent Monitor Data Heart Rate from ECG 63 NIBP 156/45 NIBP BP-Mean 70 Respiration from ECG 26 SpO2 96 I&O: 06/22/18 06/23/18 06/24/18 06:59 06:59 06:59 Intake Total 1150 900 Output Total 350 250 Balance 800 650 Result Diagrams: 06/23/18 04:25 06/23/18 04:25 Additional Labs: Accuchecks 06/23/18 06/23/18 06/23/18 08:14 04:36 00:06 POC Glucose 179 H 170 H 161 H 06/22/18 06/22/18 06/22/18 19:49 17:08 13:22 POC Glucose 189 H 211 H 141 H Microbiology 06/19/18 21:20 Urine Straight Catheter Urine Culture - Final Alpha-Strep, not S. pneumoniae Aerococcus urinae 06/19/18 21:20 Urine Straight Catheter Urine Culture - Preliminary 06/19/18 20:17 Venous blood - Left Hand Blood Culture - Preliminary NO GROWTH AT 48 HOURS 06/19/18 20:10 Venous blood - Left Arm Blood Culture - Preliminary NO GROWTH AT 48 HOURS Laboratory Tests 06/19/18 06/19/18 06/20/18 20:10 20:10 03:16 Carbon Dioxide BUN Creatinine 2.67 H 2.51 H Hemoglobin A1c Lactic Acid 1.3 06/20/18 06/21/18 06/22/18 03:16 09:15 03:03 Carbon Dioxide 18 L BUN 52 H Creatinine 2.77 H 2.91 H Hemoglobin A1c 6.3 H Lactic Acid Radiology Reviewed by me: Yes (Bilat Renal Sono - negative) EKG Reviewed by me: Yes (Tele - Sinus bradycardia) Phys Exam - Physical Examination opens eyes to name, states two words HEENT: PERRLA, sclera anicteric, oral pharynx no lesions Neck: no nodes, no JVD, supple, full ROM diminished in bases Respiratory: no wheezing, no rales, no rhonchi, clear to auscultation bilateral bradycardic S1, S2 Cardiovascular: no significant murmur, no rub, gallop Gastrointestinal: soft, non-tender, no distention, positive bowel sounds Musculoskeletal: no edema, pulses present Neurological: moves all 4 limbs A x O x 1 Skin: no rash, normal turgor, cap refill <2 seconds Deviation from normal: Banegas with clear urine Dx/Plan (1) Metabolic encephalopathy Code(s): G93.41 - METABOLIC ENCEPHALOPATHY Status: Acute Comment: Suspected with multifactorial process including UTI, continue supportive mgmt, component of underlying dementia, improved per family report (2) MALISSA (acute kidney injury) Code(s): N17.9 - ACUTE KIDNEY FAILURE, UNSPECIFIED Status: Acute Comment: No improvement, ? new baseline, avoid nephrotoxic meds and limit contrast exposure (3) Hypoglycemia Code(s): E16.2 - HYPOGLYCEMIA, UNSPECIFIED Status: Acute Comment: Resolving , resume low-dose Lantus and monitor trend (4) UTI (urinary tract infection) Status: Acute Qualifiers: Urinary tract infection type: acute cystitis Hematuria presence: without hematuria Qualified Code(s): N30.00 - Acute cystitis without hematuria Comment: Continue Rocephin and add Levaquin pending final sensitivities, Alpha- strep spp noted on UCx (5) Advanced dementia Code(s): F03.90 - UNSPECIFIED DEMENTIA WITHOUT BEHAVIORAL DISTURBANCE Status: Chronic Comment: Consider Palliative care option, continue Aricept 10mg HS (6) Hypothermia Code(s): T68.XXXA - HYPOTHERMIA, INITIAL ENCOUNTER Status: Acute Qualifiers: Encounter type: initial encounter Qualified Code(s): T68.XXXA - Hypothermia , initial encounter Comment: Improved with Roldan hugger, no current sign of new infectious process, repeat blood cx, continue Rocephin/Levaquin for UTI, trial off Roldan hugger today - Plan continue antibiotics, family welfare social work professor, DVT proph w/SCDs Continue supportive mgmt -: Add Levaquin pending final Ucx sensitivities -: Continue Rocephin -: Palliative/Hospice evaluation -: AM lab: BMP, CBC * .
[2018-06-23 12:15] VITALS: BMI 24.5
[2018-06-23] MEDS: Sodium Bicarbonate 75 MEQ in Dextrose 5% in Water 1,000 ML IV SCH (15:43)
--- NOTE | 2018-06-23 17:42 | PRG ---
DATE OF SERVICE: 06/23/2018 SERVICE: Pulmonary Medicine. INTERVAL HISTORY: The patient is doing fine from a respiratory standpoint. She is breathing comfortably. She is on room air. There has been no interval change to her condition. She cannot provide any additional elements of her history because of her cognitive impairment. Family is available at bedside and suggesting that they feel that she is essentially back to baseline. PHYSICAL EXAMINATION: VITAL SIGNS: Afebrile, pulse 67, blood pressure 170/71, respirations 16, saturation 96% on room air. GENERAL: The patient is awake, alert, no apparent distress. LUNGS: Decent air entry. There is no prolonged expiratory phase, wheezing present. HEART: Normal rate, regular. ABDOMEN: Soft, nontender, nondistended. Bowel sounds are positive. MUSCULOSKELETAL: No cyanosis or clubbing. There is no pitting in the bilateral lower extremities. NEUROLOGIC: Nonfocal. LABORATORY DATA: WBC 6.6, hemoglobin 9.1, platelets 104,000. Creatinine 3.19, gently up trending. Basic metabolic profile is otherwise unremarkable. Calcium 7.7. Blood sugars range from 169-179. Urine culture is growing strep. Blood cultures x4 negative. ASSESSMENT: 1. Metabolic encephalopathy, back to baseline. 2. Severe sepsis. 3. Chronic kidney disease. 4. Urinary tract infection secondary to Streptococcus. 5. Dementia, advanced. 6. Debility, severe. DISCUSSION AND PLAN: The patient is doing fine from a respiratory standpoint. At this point, she has no further requirements for inpatient Pulmonary or Critical Care opinion. She is no longer hypoglycemic and her heart rate has stabilized in the upper 50s and low 60s with good blood pressure. If she has increasing medical issues and the family wishes to be aggressive moving forward , please give our service a phone call. At this time; however, she has no current requirements for Pulmonary or Critical Care opinion. ELSA
[2018-06-23] MEDS: Donepezil HCl 10 MG TAB PO SCH (21:52)
[2018-06-23] MEDS: Atorvastatin Calcium 20 MG TAB PO SCH (21:53)
[2018-06-23] MEDS: cefTRIAXone\\ROCEPHIN 1 GM in Sodium Chloride 0.9% 100 ML IVPB SCH (21:53)
[2018-06-24 04:55] LABS: Anion Gap 11 mmol/L (10-20); BUN (Urea Nitrogen) 43 mg/dL (9.8-20.1); Calc. Creatinine Clearance 11 mL/min (70-130); Calcium 7.9 mg/dL (7.8-10.44); Carbon Dioxide 24 mmol/L (23-31); Chloride 106 mmol/L (98-107); Estimated GFR-MDRD 13; Glucose 277 mg/dL (83-110); Potassium 3.6 mmol/L (3.5-5.1); Sodium 137 mmol/L (136-145)
[2018-06-24 05:01] LABS: Band 3 % (5-11); Eosinophils 2 % (0-10); Hemoglobin 9.4 g/dL (12.0-16.0); Lymphocytes 19 % (21-51); MDiff Complete? YES; Mean Corpuscular HGB CONC 33.5 g/dL (32.0-36.0); Mean Corpuscular Hemoglobin 28.4 pg (27.0-31.0); Mean Corpuscular Volume 84.6 fL (78.0-98.0); Mean Platelet Volume 8.8 fL (7.4-10.4); Metamyelocyte 1 % (0-0); Monocytes 3 % (0-10); Neutrophil 72 % (42-75); PLT Morphology Comment Appears Adequate; Platelet Count 157 thou/uL (130-400); RBC Distribution Width 16.4 % (11.5-14.5); White Blood Cell (WBC) Count 5.4 thou/uL (4.8-10.8)
[2018-06-24] MEDS: Sodium Bicarbonate 75 MEQ in Dextrose 5% in Water 1,000 ML IV SCH ×3 (06:19→21:29)
[2018-06-24] MEDS: hydrALAZINE 10 MG TAB PO SCH ×3 (08:30→20:01)
[2018-06-24] MEDS: Multivit, Therapeutic 1 TAB PO SCH (08:31)
[2018-06-24] MEDS: Hydrochlorothiazide 25 MG TAB PO SCH (08:31)
[2018-06-24] MEDS: HumaLOG 300 UNITS/3 ML VIAL SC PRN (11:48)
--- NOTE | 2018-06-24 12:13 | PDOC.PN ---
- Subjective Encounter Start Date: 06/24/18 Encounter Start Time: 12:12 Ms. Long was seen today in follow-up of UTI with sepsis. She is more alert, and interactive, She has baseline confusion from dementia. She appears comfortable, and she is unable to voice her concerns. - Objective Resuscitation Status: Resuscitation Status DNR:Do Not Resuscitate MAR Reviewed: Yes Vital Signs & Weight: Vital Signs (12 hours) Temp Pulse Resp BP BP Pulse Ox 06/24/18 11:46 96.7 F L 71 16 143/67 H 95 06/24/18 08:30 75 179/72 H 06/24/18 08:00 98.4 F 75 16 95 06/24/18 07:49 179/72 H 06/24/18 07:25 98.4 F 75 16 95 06/24/18 03:58 99.9 F H 79 16 153/63 H 94 L Weight Admit Weight 123 lb 7.342 oz Weight 121 lb 5 oz Most Recent Monitor Data Heart Rate from ECG 63 NIBP 156/45 NIBP BP-Mean 70 Respiration from ECG 26 SpO2 96 I&O: 06/23/18 06/24/18 06/25/18 06:59 06:59 06:59 Intake Total 900 1590 Output Total 250 600 Balance 650 990 Result Diagrams: 06/24/18 04:29 06/24/18 04:29 Additional Labs: Accuchecks 06/24/18 06/24/18 06/24/18 11:14 08:40 04:11 POC Glucose 304 H 249 H 297 H 06/24/18 06/23/18 06/23/18 00:06 20:36 16:53 POC Glucose 263 H 233 H 189 H 06/23/18 12:19 POC Glucose 169 H Phys Exam - Physical Examination HEENT: PERRLA, sclera anicteric Respiratory: no wheezing, no rales, no rhonchi, clear to auscultation bilateral Cardiovascular: RRR, no significant murmur, no rub Gastrointestinal: soft, non-tender, no distention, positive bowel sounds Musculoskeletal: edema present Neurological: non-focal, moves all 4 limbs Dx/Plan (1) UTI (urinary tract infection) Status: Acute Qualifiers: Urinary tract infection type: acute cystitis Hematuria presence: without hematuria Qualified Code(s): N30.00 - Acute cystitis without hematuria Comment: Continue Rocephin and add Levaquin pending final sensitivities, Alpha- strep spp noted on UCx (2) Sepsis Code(s): A41.9 - SEPSIS, UNSPECIFIED ORGANISM Status: Acute Qualifiers: Sepsis type: sepsis due to unspecified organism Qualified Code(s): A41.9 - Sepsis, unspecified organism (3) Hypoglycemia Code(s): E16.2 - HYPOGLYCEMIA, UNSPECIFIED Status: Acute Comment: Resolving , resume low-dose Lantus and monitor trend (4) Hypothermia Code(s): T68.XXXA - HYPOTHERMIA, INITIAL ENCOUNTER Status: Acute Qualifiers: Encounter type: initial encounter Qualified Code(s): T68.XXXA - Hypothermia , initial encounter Comment: Improved with Roldan hugger, no current sign of new infectious process, repeat blood cx, continue Rocephin/Levaquin for UTI, trial off Roldan hugger today (5) Metabolic encephalopathy Code(s): G93.41 - METABOLIC ENCEPHALOPATHY Status: Acute Comment: Suspected with multifactorial process including UTI, continue supportive mgmt, component of underlying dementia, improved per family report (6) [id number] kidney injury Code(s): N17.9 - ACUTE KIDNEY FAILURE, UNSPECIFIED; N18.9 - CHRONIC KIDNEY DISEASE, UNSPECIFIED Status: Acute Qualifiers: Chronic kidney disease stage: stage 4 (severe) (7) Advanced dementia Code(s): F03.90 - UNSPECIFIED DEMENTIA WITHOUT BEHAVIORAL DISTURBANCE Status: Chronic Comment: Consider Palliative care option, continue Aricept 10mg HS - Plan * UTI with sepsis and metabolic encephalopathy- improving- hypothermia, and hypoglycemia are improving, as well as her mental status - urine culture is growing Alpha Strep, and Areococcus- continue Rocephin, and this can be changed to an oral antibiotic soon * DM- her blood glucose is beginning to rebound- will continue her on a SSI only , and monitor the trend * Acute kidney injury- her renal function continues to worsen- despite treatment for UTI, and IV fluids- will defer to Nephrology * Alzheimer's disease- stable .
--- NOTE | 2018-06-24 14:29 | PRG ---
DATE OF SERVICE: 06/24/2018 SUBJECTIVE: This 77-year-old female being seen for acute kidney injury. The patient has no verbal a ppropriate verbal response. PHYSICAL EXAMINATION: VITAL SIGNS: Afebrile, pulse 71, breathing 16, blood pressure 143/67. GENERAL APPEARANCE AND MENTAL STATUS: Fair. HEAD/NECK: Normocephalic. Atraumatic. EYES: EOMI. No deformity. EARS: Clear. No ulcers. NOSE: Intact. No lesions. MOUTH: Clear. No discharge. THROAT: Clear. No exudate. LUNGS: Clear. No crackles. CARDIAC: S1, S2. No rub. ABDOMEN: Benign. BS+. GENITALIA/RECTUM: Banegas absent. BACK/EXTREMITIES: Edema 0+ Ulcer- NEUROLOGICAL: Alert and motor intact. SKIN: Rash- Bruise- LYMPHATICS: Edema- Ulcer- LABORATORY DATA: Hemoglobin 9.4, creatinine 3.4. ASSESSMENT AND PLAN: 1. Chronic kidney disease, stage 5 due to acute tubular necrosis and progressive diabetic nephropath y. No urgent indication for dialysis. I would recommend holding off on the hydrochlorothiazide. 2. Hypertension, stable. 3. Anemia, stable. 4. Medication based on glomerular filtration rate appropriate.
[2018-06-24] MEDS: Donepezil HCl 10 MG TAB PO SCH (20:01)
[2018-06-24] MEDS: Atorvastatin Calcium 20 MG TAB PO SCH (20:01)
--- NOTE | 2018-06-24 21:23 | EKG ---
Test Reason : BRADYCARDIA Blood Pressure : / mmHG Vent. Rate : 042 BPM Atrial Rate : 042 BPM P-R Int : 114 ms QRS Dur : 090 ms QT Int : 570 ms P-R-T Axes : 006 013 130 degrees QTc Int : 475 ms Marked sinus bradycardia Abnormal ECG Confirmed by VALERIE PLATA DO ([id number]), development editor JAMISON DOOLEY ([id number]) on 06/24/2018 9:23:02 PM Referred By: Confirmed By:VALERIE PLATA DO
[2018-06-24] MEDS: cefTRIAXone\\ROCEPHIN 1 GM in Sodium Chloride 0.9% 100 ML IVPB SCH (22:39)
[2018-06-25 05:17] LABS: Anion Gap 11 mmol/L (10-20); BUN (Urea Nitrogen) 39 mg/dL (9.8-20.1); Calc. Creatinine Clearance 12 mL/min (70-130); Calcium 8.1 mg/dL (7.8-10.44); Carbon Dioxide 28 mmol/L (23-31); Chloride 101 mmol/L (98-107); Estimated GFR-MDRD 13; Glucose 185 mg/dL (83-110); Sodium 137 mmol/L (136-145)
[2018-06-25 05:19] LABS: Potassium 2.9 mmol/L (3.5-5.1)
[2018-06-25 06:06] LABS: #Basophils 0.1 thou/uL (0.0-0.2); #Eosinphils 0.4 thou/uL (0.0-0.7); #Lymphocytes 1.8 thou/uL (1.20-3.40); #Monocytes 0.6 thou/uL (0.11-0.59); #Neutrophils 4.2 thou/uL (1.40-6.50); %Basophils 0.8 % (0.0-1.0); %Eosinophils 5.3 % (0.0-10.0); %Lymphocytes 25.5 % (21.0-51.0); %Monocytes 8.4 % (0.0-10.0); Hemoglobin 9.8 g/dL (12.0-16.0); Mean Corpuscular Hemoglobin 28.3 pg (27.0-31.0); Mean Corpuscular Volume 83.3 fL (78.0-98.0); Mean Platelet Volume 10.9 fL (7.4-10.4); Platelet Count 81 thou/uL (130-400); RBC Distribution Width 16.3 % (11.5-14.5); Red Blood Cell (RBC) Count 3.44 mill/uL (4.20-5.40)
[2018-06-25] MEDS ORDERED: Potassium Chloride 20 MEQ in Premix Bag 1 BAG IVPB SCH (07:00)
[2018-06-25] MEDS: Multivit, Therapeutic 1 TAB PO SCH (08:45)
[2018-06-25] MEDS: hydrALAZINE 10 MG TAB PO SCH (08:45)
[2018-06-25] MEDS: Heparin 5,000 UNITS/ML VIAL SC SCH ×3 (08:47→20:35)
--- NOTE | 2018-06-25 11:45 | PDOC.PN ---
- Subjective Encounter Start Date: 06/25/18 Encounter Start Time: 11:41 Ms. Long was seen today in follow-up of UTI with sepsis. She is awake and alert, and does not have any complaints. - Objective Resuscitation Status: Resuscitation Status DNR:Do Not Resuscitate MAR Reviewed: Yes Vital Signs & Weight: Vital Signs (12 hours) Temp Pulse Resp BP Pulse Ox 06/25/18 08:45 54 L 06/25/18 08:10 93.5 F L 54 L 12 205/96 H 95 06/25/18 04:00 94.9 F L 56 L 23 H 199/84 H Weight Admit Weight 123 lb 7.342 oz Weight 121 lb 5 oz Most Recent Monitor Data Heart Rate from ECG 63 NIBP 156/45 NIBP BP-Mean 70 Respiration from ECG 26 SpO2 96 I&O: 06/24/18 06/25/18 06/26/18 06:59 06:59 06:59 Intake Total 1590 1060 Output Total 600 1000 Balance 990 60 Result Diagrams: 06/25/18 04:26 06/25/18 04:26 Additional Labs: Accuchecks 06/25/18 06/24/18 06/24/18 10:37 20:00 16:44 POC Glucose 312 H 151 H 166 H Phys Exam - Physical Examination HEENT: PERRLA, sclera anicteric Respiratory: no wheezing, no rales, no rhonchi, clear to auscultation bilateral Cardiovascular: RRR, no significant murmur, no rub, gallop Gastrointestinal: soft, non-tender, no distention, positive bowel sounds Musculoskeletal: no edema Dx/Plan (1) UTI (urinary tract infection) Status: Acute Qualifiers: Urinary tract infection type: acute cystitis Hematuria presence: without hematuria Qualified Code(s): N30.00 - Acute cystitis without hematuria Comment: Continue Rocephin and add Levaquin pending final sensitivities, Alpha- strep spp noted on UCx (2) Sepsis Code(s): A41.9 - SEPSIS, UNSPECIFIED ORGANISM Status: Acute Qualifiers: Sepsis type: sepsis due to unspecified organism Qualified Code(s): A41.9 - Sepsis, unspecified organism (3) Hypoglycemia Code(s): E16.2 - HYPOGLYCEMIA, UNSPECIFIED Status: Acute Comment: Resolving , resume low-dose Lantus and monitor trend (4) Hypothermia Code(s): T68.XXXA - HYPOTHERMIA, INITIAL ENCOUNTER Status: Acute Qualifiers: Encounter type: initial encounter Qualified Code(s): T68.XXXA - Hypothermia , initial encounter Comment: Improved with Roldan hugger, no current sign of new infectious process, repeat blood cx, continue Rocephin/Levaquin for UTI, trial off Roldan hugger today (5) Metabolic encephalopathy Code(s): G93.41 - METABOLIC ENCEPHALOPATHY Status: Acute Comment: Suspected with multifactorial process including UTI, continue supportive mgmt, component of underlying dementia, improved per family report (6) Tdroh-wu-xosppgn kidney injury Code(s): N17.9 - ACUTE KIDNEY FAILURE, UNSPECIFIED; N18.9 - CHRONIC KIDNEY DISEASE, UNSPECIFIED Status: Acute Qualifiers: Chronic kidney disease stage: stage 4 (severe) (7) Advanced dementia Code(s): F03.90 - UNSPECIFIED DEMENTIA WITHOUT BEHAVIORAL DISTURBANCE Status: Chronic Comment: Consider Palliative care option, continue Aricept 10mg HS - Plan * UTI with sepsis- will continue Rocephin, and consider change to oral antibiotic tomorrow * She still has intermittent episodes of hypothermia, and her blood glucsoe has been very labile * HTN- blood pressure has been elevated- will add Hydralazine TID * Metabolic encephalopathy from sepsis- improved * Acute kidney injury- unfortunately her renal function has not improved much- discussed with Dr. Baum- She will either need dialysis, and if not then consideration for Hospice care would be appropriate.
--- NOTE | 2018-06-25 12:59 | PRG ---
DATE OF SERVICE: 06/25/2018 SUBJECTIVE: This is an 77-year-old female being seen for acute kidney injury. The patient remains n onverbal. PHYSICAL EXAMINATION: GENERAL: Patient is resting. VITAL SIGNS: Afebrile, pulse 57, breathing at 16, blood pressure 185/76. GENERAL APPEARANCE AND MENTAL STATUS: Fair. HEAD/NECK: Normocephalic. Atraumatic. EYES: EOMI. No deformity. EARS: Clear. No ulcers. NOSE: Intact. No lesions. MOUTH: Clear. No discharge. THROAT: Clear. No exudate. LUNGS: Clear. No crackles. CARDIAC: S1, S2. No rub. ABDOMEN: Benign. BS+. GENITALIA/RECTUM: Banegas absent. BACK/EXTREMITIES: Edema 0+ Ulcer-. NEUROLOGICAL: The patient does not respond to any simple questions. SKIN: Rash- Bruise- LYMPHATICS: Edema- Ulcer-. LABORATORY DATA: Show creatinine is 3.3. ASSESSMENT AND RECOMMENDATIONS: 1. Acute kidney injury with chronic kidney disease due to acute tubular necrosis, multifactorial. N o indication for dialysis. 2. Hypokalemia. Agree with potassium replacement. 3. Advanced dementia. The plan is to get a Palliative Care Medicine involved. I will sign off on t his patient. Please reconsult as needed.
[2018-06-25] MEDS: hydrALAZINE 25 MG TAB PO SCH ×2 (15:41→20:35)
[2018-06-25] MEDS: HumaLOG 300 UNITS/3 ML VIAL SC PRN ×2 (18:06→22:18)
[2018-06-25] MEDS: Atorvastatin Calcium 20 MG TAB PO SCH (20:34)
[2018-06-25] MEDS: Donepezil HCl 10 MG TAB PO SCH (20:34)
[2018-06-25] MEDS: cefTRIAXone\\ROCEPHIN 1 GM in Sodium Chloride 0.9% 100 ML IVPB SCH (22:18)
[2018-06-26] MEDS: Sodium Bicarbonate 75 MEQ in Dextrose 5% in Water 1,000 ML IV SCH ×3 (05:18→19:09)
[2018-06-26] MEDS: Heparin 5,000 UNITS/ML VIAL SC SCH ×3 (09:30→20:44)
[2018-06-26] MEDS: hydrALAZINE 25 MG TAB PO SCH ×3 (09:33→20:44)
[2018-06-26] MEDS: Multivit, Therapeutic 1 TAB PO SCH (09:34)
--- NOTE | 2018-06-26 13:07 | PDOC.PN ---
- Subjective Encounter Start Date: 06/26/18 Encounter Start Time: 13:02 Ms. Long was seen today in follow-up of UTI with sepsis. She does not have any complaints. - Objective Resuscitation Status: Resuscitation Status DNR:Do Not Resuscitate MAR Reviewed: Yes Vital Signs & Weight: Vital Signs (12 hours) Temp Pulse Resp BP Pulse Ox 06/26/18 12:51 97.7 F 73 12 129/59 L 96 06/26/18 09:33 75 06/26/18 07:33 97.6 F 75 14 176/74 H 100 06/26/18 04:12 96.5 F L 70 14 180/76 H 98 Weight Admit Weight 123 lb 7.342 oz Weight 121 lb 6.4 oz Most Recent Monitor Data Heart Rate from ECG 63 NIBP 156/45 NIBP BP-Mean 70 Respiration from ECG 26 SpO2 96 I&O: 06/25/18 06/26/18 06/27/18 06:59 06:59 06:59 Intake Total 1060 900 Output Total 1000 315 Balance 60 585 Result Diagrams: 06/25/18 04:26 06/25/18 04:26 Additional Labs: Accuchecks 06/26/18 06/25/18 06/25/18 06:06 21:04 17:45 POC Glucose 206 H 348 H 409 H Phys Exam - Physical Examination HEENT: PERRLA Respiratory: no wheezing, no rales, no rhonchi, clear to auscultation bilateral Cardiovascular: RRR, no significant murmur, no rub Gastrointestinal: soft, non-tender, no distention, positive bowel sounds Musculoskeletal: no edema Dx/Plan (1) UTI (urinary tract infection) Status: Acute Qualifiers: Urinary tract infection type: acute cystitis Hematuria presence: without hematuria Qualified Code(s): N30.00 - Acute cystitis without hematuria Comment: Continue Rocephin and add Levaquin pending final sensitivities, Alpha- strep spp noted on UCx (2) Sepsis Code(s): A41.9 - SEPSIS, UNSPECIFIED ORGANISM Status: Acute Qualifiers: Sepsis type: sepsis due to unspecified organism Qualified Code(s): A41.9 - Sepsis, unspecified organism (3) Ilztd-sk-aldiovg kidney injury Code(s): N17.9 - ACUTE KIDNEY FAILURE, UNSPECIFIED; N18.9 - CHRONIC KIDNEY DISEASE, UNSPECIFIED Status: Acute Qualifiers: Chronic kidney disease stage: stage 4 (severe) (4) Hypoglycemia Code(s): E16.2 - HYPOGLYCEMIA, UNSPECIFIED Status: Acute Comment: Resolving , resume low-dose Lantus and monitor trend (5) Hypothermia Code(s): T68.XXXA - HYPOTHERMIA, INITIAL ENCOUNTER Status: Acute Qualifiers: Encounter type: initial encounter Qualified Code(s): T68.XXXA - Hypothermia , initial encounter Comment: Improved with Roldan hugger, no current sign of new infectious process, repeat blood cx, continue Rocephin/Levaquin for UTI, trial off Roldan hugger today (6) Metabolic encephalopathy Code(s): G93.41 - METABOLIC ENCEPHALOPATHY Status: Acute Comment: Suspected with multifactorial process including UTI, continue supportive mgmt, component of underlying dementia, improved per family report (7) Advanced dementia Code(s): F03.90 - UNSPECIFIED DEMENTIA WITHOUT BEHAVIORAL DISTURBANCE Status: Chronic Comment: Consider Palliative care option, continue Aricept 10mg HS - Plan * UTI- will change the antibiotic to Omnicef * Sepsis- resolving * Acute kidney injury- discussed with the patient's daughter. Kidney function has not improved, and she has reached the stage of end stage renal disease. She states she would not want to pursue dialysis. * Hypothermia- not much improved * Plan for discharge home tomorrow.
[2018-06-26] MEDS: HumaLOG 300 UNITS/3 ML VIAL SC PRN ×2 (19:08→21:16)
[2018-06-26] MEDS: Atorvastatin Calcium 20 MG TAB PO SCH (20:43)
[2018-06-26] MEDS: Cefdinir 300 MG CAP PO SCH (20:43)
[2018-06-26] MEDS: Donepezil HCl 10 MG TAB PO SCH (20:44)
[2018-06-27] MEDS: Cefdinir 300 MG CAP PO SCH (11:03)
[2018-06-27] MEDS: Heparin 5,000 UNITS/ML VIAL SC SCH ×2 (11:03→14:46)
[2018-06-27] MEDS: hydrALAZINE 25 MG TAB PO SCH ×2 (11:04→14:47)
[2018-06-27] MEDS: Multivit, Therapeutic 1 TAB PO SCH (11:04)
[2018-06-27] MEDS: HumaLOG 300 UNITS/3 ML VIAL SC PRN (11:51)
--- NOTE | 2018-06-27 13:51 | PDOC.PN ---
- Subjective Encounter Start Date: 06/27/18 Encounter Start Time: 13:49 Ms. Long was seen today in follow-up of UTI and sepsis. She does not have any complaints. - Objective Resuscitation Status: Resuscitation Status DNR:Do Not Resuscitate MAR Reviewed: Yes Vital Signs & Weight: Vital Signs (12 hours) Temp Pulse Resp BP Pulse Ox 06/27/18 11:10 97.6 F 69 12 158/67 H 97 06/27/18 11:04 74 06/27/18 07:40 97.6 F 71 16 156/67 H 95 06/27/18 04:00 98.3 F 74 16 134/62 Weight Admit Weight 123 lb 7.342 oz Weight 123 lb 11.2 oz Most Recent Monitor Data Heart Rate from ECG 63 NIBP 156/45 NIBP BP-Mean 70 Respiration from ECG 26 SpO2 96 I&O: 06/26/18 06/27/18 06/28/18 06:59 06:59 06:59 Intake Total 900 1740 Output Total 315 400 Balance 585 1340 Result Diagrams: 06/25/18 04:26 06/25/18 04:26 Additional Labs: Accuchecks 06/27/18 06/26/18 06/26/18 05:39 20:53 16:58 POC Glucose 149 H 308 H 339 H Phys Exam - Physical Examination HEENT: PERRLA Respiratory: no wheezing, no rales, no rhonchi, clear to auscultation bilateral Cardiovascular: RRR, no significant murmur, no rub Gastrointestinal: soft, non-tender, no distention, positive bowel sounds Musculoskeletal: no edema Dx/Plan (1) UTI (urinary tract infection) Status: Acute Qualifiers: Urinary tract infection type: acute cystitis Hematuria presence: without hematuria Qualified Code(s): N30.00 - Acute cystitis without hematuria Comment: Continue Rocephin and add Levaquin pending final sensitivities, Alpha- strep spp noted on UCx (2) Sepsis Code(s): A41.9 - SEPSIS, UNSPECIFIED ORGANISM Status: Acute Qualifiers: Sepsis type: sepsis due to unspecified organism Qualified Code(s): A41.9 - Sepsis, unspecified organism (3) Nfxqx-ns-xorxrmy kidney injury Code(s): N17.9 - ACUTE KIDNEY FAILURE, UNSPECIFIED; N18.9 - CHRONIC KIDNEY DISEASE, UNSPECIFIED Status: Acute Qualifiers: Chronic kidney disease stage: stage 4 (severe) (4) Hypoglycemia Code(s): E16.2 - HYPOGLYCEMIA, UNSPECIFIED Status: Acute Comment: Resolving , resume low-dose Lantus and monitor trend (5) Hypothermia Code(s): T68.XXXA - HYPOTHERMIA, INITIAL ENCOUNTER Status: Acute Qualifiers: Encounter type: initial encounter Qualified Code(s): T68.XXXA - Hypothermia , initial encounter Comment: Improved with Roldan hugger, no current sign of new infectious process, repeat blood cx, continue Rocephin/Levaquin for UTI, trial off Roldan hugger today (6) Metabolic encephalopathy Code(s): G93.41 - METABOLIC ENCEPHALOPATHY Status: Acute Comment: Suspected with multifactorial process including UTI, continue supportive mgmt, component of underlying dementia, improved per family report (7) Advanced dementia Code(s): F03.90 - UNSPECIFIED DEMENTIA WITHOUT BEHAVIORAL DISTURBANCE Status: Chronic Comment: Consider Palliative care option, continue Aricept 10mg HS - Plan * UTI with sepsis- improved * Acute on chronic kidney injury- unchanged * Stable for discharge to [facility] with Hospice.
[2018-06-27 14:48] VITALS: BP 122/60
[2018-06-27 14:51] VITALS: TEMP 98.4
--- NOTE | 2018-06-28 00:57 | DIS ---
PRIMARY CARE: At the senior living. DATE OF ADMISSION: 06/19/2018 DATE OF DISCHARGE: 06/27/2018 DISCHARGE DISPOSITION: Back to the senior living. DISCHARGE DIAGNOSES: 1. Urinary tract infection with sepsis. 2. Hypoglycemia secondary to urinary tract infection. 3. Hypothermia secondary to urinary tract infection. 4. Metabolic encephalopathy due to urinary tract infection. 5. Advanced dementia. DISCHARGE MEDICATIONS: Include Omnicef 300 mg one p.o. twice daily for 7 days, hydralazine 25 mg t.i .d., simvastatin 60 mg at bedtime, Zoloft 25 mg daily, Theragran-M one tablet daily, Lopressor 50 mg twice daily and Donepezil 10 mg at bedtime. PROCEDURES DONE DURING ADMISSION: The patient had an echocardiogram in which the ejection fraction w as estimated at 50%-55% with a flow reversal was noted suggestive of diastolic dysfunction. There wa s moderate mitral regurgitation present. The patient also had a renal ultrasound and this was unrema rkable. CODE STATUS: DNR. ALLERGIES: No known drug allergies. HOSPITAL COURSE: Ms. Long is a pleasant 77-year-old female who was sent over from the [facility] due to altered mental status. She was also found to be hypoglycemic and hypothermic. When she wa s evaluated in the ER, she was found to have a urinary tract infection and was septic as a result, th is was manifested by the low glucose and low temperature. She was started on IV antibiotics, placed on a warmer given a warming blanket that is and her insulin was held. She was given IV dextrose. mckayla also had acute on chronic kidney disease, likely as a result of the sepsis. The patient's renal fu nction unfortunately did not improve during her hospital stay and her blood glucose remained more or less labile and due to her advanced age and multiple comorbid conditions, the patient's daughter jerel ded on letting her go back to the senior living on hospice. Her renal function had reached end stage and she would not be initiated on dialysis. Also at the time of discharge, she was taken off her med ications for diabetes and that her blood glucose can be treated symptomatically as needed. The patie nt was therefore discharged home to [facility] on 06/27/2018.
[2018-06-28] MEDS ORDERED: Cefdinir 300 MG CAP PO SCH (09:00)
== END 2018-06-27 16:58 | disposition hospice, inpatient (51) | DRG 871 ==
LOC: ERS 19:33 → CCU 22:23 → IMCU/EMU 06-20 11:11 → T4-B 06-21 18:14 → 2NO 06-22 02:39
PROVIDERS: ADMIT Hospitalist; ATTEND Hospitalist
DX: A41.9 Sepsis, unspecified organism (principal); G93.41 Metabolic encephalopathy; N17.0 Acute kidney failure with tubular necrosis; N30.00 Acute cystitis without hematuria; I50.30 Unspecified diastolic (congestive) heart failure; I13.2 Hypertensive heart and chronic kidney disease with heart failure and with stage 5 chronic kidney disease, or end stage renal disease; N18.5 Chronic kidney disease, stage 5; R65.20 Severe sepsis without septic shock; D63.1 Anemia in chronic kidney disease; L89.152 Pressure ulcer of sacral region, stage 2; R68.0 Hypothermia, not associated with low environmental temperature; G30.9 Alzheimer's disease, unspecified; Z66 Do not resuscitate; B95.0 Streptococcus, group A, as the cause of diseases classified elsewhere; F02.80 Dementia in other diseases classified elsewhere, unspecified severity, without behavioral disturbance, psychotic disturbance, mood disturbance, and anxiety; E11.22 Type 2 diabetes mellitus with diabetic chronic kidney disease; I34.0 Nonrheumatic mitral (valve) insufficiency; R74.8 Abnormal levels of other serum enzymes; E78.5 Hyperlipidemia, unspecified; F32.9 Major depressive disorder, single episode, unspecified; Z79.4 Long term (current) use of insulin
CPT/HCPCS: 36415; 36416; 51701; 71045; 76770; 80048; 80053; 81003; 81015; 82553; 83036; 83605; 83735; 83880; 84443; 84484; 85007; 85025; 85027; 87040; 87077; 87086; 93005; 93306; 94760; 96374; 96375; A4216; A4353; G8996-GN-CJ; G8997-GN-CJ; J0696; J1644; J1650; J1956; J3475; J3480; J7050; J7070